=== PATIENT | female | born 1950 | race Caucasian/White ===

== ENCOUNTER 2023-08-31 18:43 | Observation (INO) | payer MEDICARE ==
[~2023-08-31] VITALS: Ht 154.9 cm; Wt 59.0 kg
[2023-08-31 21:10] LABS: BASO % 0.3 % (0.0-1.0); EOS # 0.1 10^3/uL (0.0-0.5); HEMATOCRIT 40.5 % (36.0-47.0); HEMOGLOBIN 12.8 g/dl (12.0-15.5); LYMPH # 2.3 10^3/uL (1.5-5.0); LYMPH % 23.4 % (24.0-44.0); MEAN CORPUSCULAR HEMOGLOBIN 26.3 pg (27.0-33.0); MEAN CORPUSCULAR HGB CONC 31.6 g/dl (32.0-36.5); MEAN CORPUSCULAR VOLUME 83.2 fl (80.0-96.0); MONO # 0.6 10^3/uL (0.0-0.8); NEUTROPHILS # 6.8 10^3/uL (1.5-8.5); NEUTROPHILS % 68.7 % (36.0-66.0); PLATELET COUNT, AUTOMATED 308 10^3/uL (150-450); RED BLOOD COUNT 4.87 10^6/uL (4.00-5.40); WHITE BLOOD COUNT 9.9 10^3/uL (4.0-10.0)
[2023-08-31 21:36] LABS: CK-MB VALUE MASS < 1.0 NG/ML (<3.6)
[2023-08-31 21:40] LABS: BLOOD UREA NITROGEN 15 MG/DL (9-23); CALCIUM LEVEL 8.8 MG/DL (8.3-10.6); CARBON DIOXIDE LEVEL 25 MMOL/L (20-31); CHLORIDE LEVEL 108 MMOL/L (98-107); CPK CREATINE PHOSPHOKINASE 63 U/L (34-145); CREATININE FOR GFR 0.72 MG/DL (0.55-1.30); GLOMERULAR FILTRATION RATE > 60.0 (>39); GLUCOSE, FASTING 108 MG/DL (74-106); MB/CK RELATIVE INDEX 1.58 (< OR =4); POTASSIUM SERUM 4.3 MMOL/L (3.5-5.1); SODIUM LEVEL 140 MMOL/L (136-145)
[2023-08-31 21:43] LABS: THYROID STIMULATING HORMONE 2.037 uIU/ML (0.55-4.78)
[2023-08-31 21:53] LABS: RSV AMPLIFICATION NEGATIVE (NEGATIVE)
[2023-08-31] MEDS ORDERED: LATA1DRO OU (23:21)
[2023-08-31] MEDS ORDERED: ALEN70TA82 PO (23:21)
[2023-08-31] MEDS ORDERED: PANT20TA6 PO (23:21)
[2023-08-31] MEDS ORDERED: DILT120C89 PO (23:21)
[2023-08-31] MEDS ORDERED: CALC500C16 PO (23:21)
[2023-08-31] MEDS ORDERED: COMBAER6 INH (23:21)
[2023-08-31] MEDS ORDERED: DORZ2SOL4 OU (23:21)
[2023-08-31] MEDS ORDERED: D3 H400T PO (23:21)
[2023-08-31] MEDS ORDERED: ATOR40TA75 PO (23:21)
[2023-08-31] MEDS ORDERED: BRIM2OPD OU (23:21)
[2023-08-31] MEDS ORDERED: SPIR-10 PO (23:21)
[2023-08-31] MEDS ORDERED: HYDR-3363 PO (23:21)
[2023-08-31] MEDS ORDERED: ALBU2.5V10 INH (23:21)
[2023-08-31] MEDS ORDERED: HOME MED LIST COMPLETE! XX SCH (23:25)
[2023-08-31] MEDS ORDERED: MAALOX 30 ML SUSP *UDC PO PRN (23:50)
[2023-08-31] MEDS ORDERED: ACETAMINOPHEN TAB 650MG DOSE (2X325MG) PO PRN (23:50)
[2023-08-31] MEDS ORDERED: MOM 30ML SUSPENSION UDC PO PRN (23:50)
[2023-09-01] MEDS: PANTOPRAZOLE 20 MG TAB PO SCH (12:03)
[2023-09-01] MEDS: DORZOLAMIDE 2% OPHTH SOLN 10 ML BTL OU SCH (12:04)
[2023-09-01 13:04] VITALS: BP 110/62; TEMP 97; O2SAT 97
[2023-09-01] MEDS ORDERED: BRIMONIDINE 0.15% OPHTH SOLN 5 ML OU SCH (21:00)
[2023-09-01] MEDS ORDERED: ATORVASTATIN 20 MG TAB PO SCH (21:00)
== END 2023-09-01 13:13 | disposition home or self-care (01) ==
LOC: M ED 18:43 → M ED INP 18:44
PROVIDERS: ADMIT Internal Medicine; ATTEND Internal Medicine
DX: R55 Syncope and collapse (principal); S00.03XA Contusion of scalp, initial encounter; I67.82 Cerebral ischemia; G31.1 Senile degeneration of brain, not elsewhere classified; S63.502A Unspecified sprain of left wrist, initial encounter; M19.032 Primary osteoarthritis, left wrist; M81.0 Age-related osteoporosis without current pathological fracture; W18.12XA Fall from or off toilet with subsequent striking against object, initial encounter; Y92.091 Bathroom in other non-institutional residence as the place of occurrence of the external cause; Y93.9 Activity, unspecified; Y99.8 Other external cause status; M47.9 Spondylosis, unspecified; J45.909 Unspecified asthma, uncomplicated; J44.9 Chronic obstructive pulmonary disease, unspecified; I10 Essential (primary) hypertension; N32.81 Overactive bladder; K22.70 Barrett's esophagus without dysplasia; K21.9 Gastro-esophageal reflux disease without esophagitis; Z88.8 Allergy status to other drugs, medicaments and biological substances; Z91.018 Allergy to other foods; Z79.899 Other long term (current) drug therapy; Z82.49 Family history of ischemic heart disease and other diseases of the circulatory system; Z80.9 Family history of malignant neoplasm, unspecified
CPT/HCPCS: 70450; 71045; 72125; 73110; 73130; 80048; 82550; 82553; 83605; 83735; 84443; 84484; 85025; 87631; 93005; 93041; 94760; 99285; G0378